=== PATIENT | female | born 1995 | race Caucasian/White ===

== ENCOUNTER 2017-02-21 15:39 | Emergency (ER) | payer MEDICAID ==
[~2017-02-21] VITALS: Ht 177.8 cm; Wt 108.9 kg
[2017-02-21] MEDS ORDERED: SODIUM CHLORIDE FLUSH 10ML SYR IVF ONE (17:00)
[2017-02-21] MEDS ORDERED: SODIUM CHLORIDE 0.9% 1,000ML IVBOLUS ONE (17:00)
[2017-02-21] MEDS ORDERED: KETOROLAC 30 MG/1 ML IVPush ONE (17:00)
[2017-02-21] MEDS ORDERED: DIPHENHYDRAMINE 50 MG/ML, 1ML IVPush ONE (17:00)
[2017-02-21] MEDS ORDERED: PROCHLORPERAZINE 5 MG/ML, 2ML IVPush ONE (17:00)
[2017-02-21] MEDS ORDERED: DIPHENHYDRAMINE 50 MG/ML, 1ML ONE (17:57)
[2017-02-21] MEDS ORDERED: KETOROLAC 30 MG/1 ML ONE (17:57)
[2017-02-21] MEDS ORDERED: PROCHLORPERAZINE 5 MG/ML, 2ML ONE (17:57)
[2017-02-21] MEDS ORDERED: PARO30TA3 PO (18:15)
[2017-02-21] MEDS ORDERED: RIZA5TAB2 PO (18:15)
[2017-02-21] MEDS ORDERED: AMIT50TA PO (18:15)
[2017-02-21] MEDS ORDERED: TOPI50TA8 PO (18:15)
[2017-02-21] MEDS ORDERED: INDO25CA PO (18:15)
[2017-02-21] MEDS ORDERED: AMIT25TA PO (18:15)
[2017-02-21] MEDS ORDERED: NARA2.5T4 PO (18:15)
[2017-02-21] MEDS ORDERED: BUSP7.5T3 PO (18:15)
[2017-02-21 19:46] VITALS: BP 112/64
== END 2017-02-21 19:49 | disposition home or self-care (01) ==
LOC: ED 19:41
DX: G43.909 Migraine, unspecified, not intractable, without status migrainosus (principal)
CPT/HCPCS: 96361; 96374; 96375; 99285; J0780; J1200; J1885; J7030